=== PATIENT | male | born 1955 | race American Indian/Alaskan Native ===

== ENCOUNTER 2020-07-23 10:31 | Day surgery (SDC) | payer OTHER ==
[2020-07-21 11:56] LABS: Hematocrit 44.9 % (35.5-45.6); Hemoglobin 15.2 gm/dl (11.8-15.2); Mean Corpuscular HGB Conc 34 % (32-34); Mean Corpuscular Volume 96 fl (84-94); Platelet Count 456 K/mm3 (140-440); Red Blood Count 4.67 M/mm3 (3.65-5.03); Red Cell Distribution Width 13.5 % (13.2-15.2)
--- NOTE | 2020-07-21 12:49 | Anesthesia Consultation ---
Anesthesia Consult and Med Hx Date of service: 07/23/20 - Airway Anesthetic Teeth Evaluation: Edentulous ROM Head & Neck: Adequate Mental/Hyoid Distance: Adequate Mallampati Class: Class III Intubation Access Assessment: Possibly Difficult - Pulmonary Exam CTA: Yes - Cardiac Exam Cardiac Exam: RRR - Pre-Operative Health Status ASA Pre-Surgery Classification: ASA3 Proposed Anesthetic Plan: General - Pulmonary Hx Smoking: Yes (1/2 PPD; 25pk yr hx) Hx Respiratory Symptoms: No - Cardiovascular System Hx Hypertension: Yes Hx Heart Attack/AMI: No Hx Percutaneous Transluminal Coronary Angioplasty (PTCA): No Hx Cardia Arrhythmia: Yes (hx occas. low grade tachycardia) Hx Pacemaker: No Hx Internal Defibrillator: No - Central Nervous System CVA: No Hx Psychiatric Problems: No - Gastrointestinal Hx Gastroesophageal Reflux Disease: Yes - Endocrine Hx Renal Disease: No Hx Liver Disease: No Hx Non-Insulin Dependent Diabetes: Yes Hx Thyroid Disease: No - Other Systems Hx Obesity: No - Additional Comments Anesthesia Medical History Comments: No hx anesthetic complications.
[2020-07-21 13:16] LABS: Alanine Aminotransferase 28 units/L (7-56); Albumin 4.3 g/dL (3.9-5); BUN/Creatinine Ratio 9; Blood Urea Nitrogen 9 mg/dL (9-20); Calcium 9.7 mg/dL (8.4-10.2); Hemolysis Index 3
[~2020-07-23 10:31] MED LIST: LACTATED RINGERS 1,000 ML IV SCH
--- NOTE | 2020-07-23 11:13 | Anesthesia Day of Surgery ---
Anesthesia Day of Surgery - Day of Surgery Patient Examined: Yes Patient H&P Reviewed: Yes Patient is NPO: Yes
[2020-07-23] MEDS: MIDAZOLAM 2 MG/2 ML INJ IV NR ×2 (12:33→12:45)
[2020-07-23] MEDS ORDERED: GENTAMICIN 40 MG/ML VIAL 2 ML ONE (12:54)
[2020-07-23] MEDS ORDERED: ceFAZolin/Water 2 GM/20 ML 2 GM/20 ML SYRINGE IV NR (13:00)
[2020-07-23] MEDS ORDERED: GENTAMICIN/NS 80 MG/100 ML 100 ML IV SCH (13:00)
[2020-07-23] MEDS ORDERED: propofoL 200 MG/20 ML VIAL IV ONE (13:34)
[2020-07-23] MEDS ORDERED: LIDOCAINE MPF (2%) 20 MG/1 ML VIAL 5 ML ONE (13:34)
[2020-07-23] MEDS ORDERED: HYDROmorphone 1 MG/1 ML INJ ONE (13:34)
[2020-07-23] MEDS ORDERED: SODIUM CHLORIDE 0.9% 100 ML ONE (14:20)
[2020-07-23] MEDS ORDERED: FUROSEMIDE 40 MG/4 ML INJ ONE (15:07)
[2020-07-23] MEDS ORDERED: ONDANSETRON 4 MG/2 ML INJ ONE (15:10)
--- NOTE | 2020-07-23 15:10 | Post Operative Note ---
Date of procedure: 07/30/20 Pre-op diagnosis: park aur Post-op diagnosis: same Findings: bph and stricture Procedure: cysto dil cysto gram Anesthesia: GETA Surgeon: MARY VENEGAS Estimated blood loss: minimal Pathology: none Condition: stable Disposition: PACU
--- NOTE | 2020-07-23 15:11 | Discharge Summary ---
Short Stay Discharge Plan Activity: other (no straining ) Weight Bearing Status: Full Weight Bearing Diet: low fat, low cholesterol, low salt Special Instructions: other (inc fluids ) Durable Medical Equipment Needed Upon Discharge: other (home with cath ) Follow up with: [facility] [Primary Care Provider] - 7 Days MARY VENEGAS MD [Staff Physician] - 7 Days
[2020-07-23] MEDS ORDERED: SODIUM CHLORIDE 0.9% IRRIG SOLN 2000 ML IR ONE (15:15)
--- NOTE | 2020-07-23 15:39 | Operative Report ---
PREOPERATIVE DIAGNOSES: Urinary retention and previous multiple catheters. POSTOPERATIVE DIAGNOSES: Urinary retention and previous multiple catheters with narrowed bulbomembranous stricture and a prominent prostate. PROCEDURE: Cystoscopy, urethral dilatation, insertion of catheter, and cystogram. SURGEON: Dr. Sena. ANESTHESIA: General. FINDINGS: This is a gentleman who had recurrent episodes of retention and floppy bladder, now presents for cystoscopy. DESCRIPTION OF PROCEDURE: The patient was brought to the operating room and placed on the operating table. Following induction of anesthesia, placed in lithotomy position, prepped and draped in usual sterile fashion. His urethra was long and slightly tortuous. When we got to the membranous urethra, it was narrowed, so we placed a wire. Once we got past there, we could see the wire in a very distended bladder. The bladder epithelium was perfectly smooth. There was not very trabeculated at all, minimally with the open bladder neck, even though there was some trilobar hypertrophy. The area of the membranous urethra was friable and was bleeding, so at that point, we had the resectoscope in. We decided not to resect because the bladder neck was open and I think this is more a urethral and bladder issue, so we placed a [place] catheter, irrigated it, and did a cystogram, showed that the bladder was floppy, smooth, nontrabeculated, no cellules, no diverticula, and we placed a 22 [place]. The patient tolerated the procedure well. His creatinine was normal, so I think he is compensating well. He may need a TUR at a later date, but at this point, we were happy to have a catheter that was draining well. Brought to the recovery room in stable condition. JOB# [id number] MIKEL/EUNICE
--- NOTE | 2020-07-23 15:50 | Fluoroscopy Report ---
Cystogram 4 views INDICATION: Pelvic pain IMPRESSION: Injected contrast within the urinary bladder was noted. No complications appreciated on t he provided images Fluoroscopy time: 20 seconds. Fluoroscopic images: 3. Signer Name: Landon Turner MD Signed: 07/23/2020 3:46 PM Workstation Name: [id number]
[2020-07-23 16:44] VITALS: BP 111/72
--- NOTE | 2020-07-23 17:09 | Post Anesthesia Evaluation ---
- Post Anesthesia Evaluation Patient Participated: Yes Airway Patent: Yes Stable Respiratory Function: Yes Nausea/Vomiting: No Temp > 96.8F: Yes Pain Manageable: Yes Adequeate Hydration: Yes Anesthesia Complications: No
== END 2020-07-23 10:32 | disposition home or self-care (01) ==
LOC: OR 10:31
PROVIDERS: ATTEND Urology
DX: R31.0 Gross hematuria (principal); Z20.828 Contact with and (suspected) exposure to other viral communicable diseases; N35.812 Other bulbous urethral stricture, male; I42.9 Cardiomyopathy, unspecified; I10 Essential (primary) hypertension; K21.9 Gastro-esophageal reflux disease without esophagitis; M19.90 Unspecified osteoarthritis, unspecified site; E11.9 Type 2 diabetes mellitus without complications; F17.210 Nicotine dependence, cigarettes, uncomplicated; Z79.899 Other long term (current) drug therapy; Z79.84 Long term (current) use of oral hypoglycemic drugs; Z98.890 Other specified postprocedural states
CPT/HCPCS: 36415; 51600; 52000; 74430; 80053; 82962; 85027; 86850; 86900; 86901; A4217; J1170; J1580; J1940; J2250; J2405; J2704; J7120; Q9967; U0003